=== PATIENT | female | born 1955 | race Caucasian/White ===

== ENCOUNTER 2017-12-16 01:34 | Emergency (ER) | payer SELFPAY ==
[2017-12-16 01:48] VITALS: BP 182/72; PULSE 74; O2SAT 100
[2017-12-16] MEDS ORDERED: TORAdol 30 mg Injection ONE (01:56)
[2017-12-16] MEDS: TORAdol 30 mg Injection IM ONE (01:58)
--- NOTE | 2017-12-16 01:59 | ERPHSYRPT ---
- History of Present Illness Time Seen by Provider: 12/16/17 01:54 Source: patient Exam Limitations: no limitations Patient Subjective Stated Complaint: pt was walking dog and wrapped leash around her legs causing her to fall, tried to catch fall with right hand, wrist and hand now hurts Triage Nursing Assessment: Pt c/o of right lower arm/wrist/hand pain due to a fall while walking a dog, wrist is swollen, no bruising, no redness, pulses normal, BP 182/72 Physician History: The patient is a left-handed 62-year-old female who complains of falling while walking her dog this evening, causing pain to her right wrist. She has not taken any analgesics placed ice on it. It is beginning to hurt more tonight now and she would like to know if it's broken. Her past medical history is unremarkable Occurred: this evening Reason for Fall: tripped, fell from standing pos Injuries/Pain Location: upper extremity (right wrist) Loss of Consciousness: no loss of consciousness Quality: aching Severity of Pain-Max: moderate Severity of Pain-Current: moderate Modifying Factors: Improves With: nothing Associated Symptoms (Fall): denies symptoms Allergies/Adverse Reactions: cephalexin Allergy (Verified 12/16/17 01:48) Home Medications: No Reportable Medications [No Reported Medications] 12/16/17 [History] - Review of Systems Constitutional: No Fever, No Chills Eyes: No Symptoms Ears, Nose, & Throat: No Symptoms Respiratory: No Cough, No Dyspnea Cardiac: No Chest Pain, No Edema, No Syncope Abdominal/Gastrointestinal: No Abdominal Pain, No Nausea, No Vomiting, No Diarrhea Genitourinary Symptoms: No Dysuria Musculoskeletal: Fall, Injury, Joint Pain Skin: No Rash Neurological: No Dizziness, No Focal Weakness, No Sensory Changes Psychological: No Symptoms Endocrine: No Symptoms Hematologic/Lymphatic: No Symptoms Immunological/Allergic: No Symptoms All Other Systems: Reviewed and Negative - Past Medical History Pertinent Past Medical History: No - Past Surgical History Past Surgical History: Yes Musculoskeletal: Orthopedic Surgery Female Surgical History: Hysterectomy, Section - Social History Smoking Status: Current every day smoker How long have you smoked: 20 yrs Drug Use: none Patient Lives Alone: Yes - Female History Hx Now: No - Nursing Vital Signs Nursing Vital Signs: Initial Vital Signs Temperature 98.7 F 12/16/17 01:37 Pulse Rate 74 12/16/17 01:37 Blood Pressure 182/72 12/16/17 01:37 O2 Sat by Pulse Oximetry 100 12/16/17 01:37 Pain Scale Pain Intensity 5 - [place] Coma Score Best Eye Response (Becka): (4) open spontaneously Best Verbal Response (Becka): (5) oriented Best Motor Response (Becka): (6) obeys commands [place] Total: 15 - Physical Exam General Appearance: no apparent distress, alert Head Injury: no evidence of injury Eye Exam: PERRL/EOMI ENT Exam: airway nml Neck Exam: normal inspection, No tenderness Respiratory/Chest Exam: normal breath sounds, No chest tenderness, No respiratory distress Cardiovascular Exam: normal heart sounds, regular rate/rhythm Gastrointestinal Exam: soft, No tenderness, No distention, No guarding, No ecchymosis Rectal Exam: not done Back Exam: normal inspection, No vertebral tenderness Extremity Exam: limited range of motion (right wrist), pain with movement, tenderness Neurologic Exam: alert, oriented x 3, cooperative, sensation nml, No motor deficits Skin Exam: normal color, warm, dry SpO2: 100 Oxygen Delivery: Room Air - Radiology Exams Right Wrist X-ray Interpretation: Interpreted by me, Negative, No Fracture Ordered Tests: Active Orders 24 hr Category Date Time Status Cold Application STAT Care 12/16/17 01:54 Active WRIST (MIN 3 VIEWS) Stat Exams 12/16/17 01:55 Taken Medication Summary Discontinued Medications Generic Name Dose Route Start Last Admin Trade Name Ashlyn PRN Reason Stop Dose Admin Ketorolac Tromethamine 60 mg 12/16/17 01:54 12/16/17 01:58 Toradol 30 Mg Injection IM 12/16/17 01:55 60 mg STAT ONE Administration Ketorolac Tromethamine Confirm 12/16/17 01:56 Toradol 30 Mg Injection Administered 12/16/17 01:57 Dose 60 mg .ROUTE .STK-MED ONE - Progress Progress: improved Counseled pt/family regarding: diagnosis, need for follow-up, rad results - Departure Time of Disposition: 02:27 Departure Disposition: Home Clinical Impression: Right wrist sprain Condition: Stable Critical Care Time: No Referrals: DOCTOR,NO FAMILY [Primary Care Provider] - Additional Instructions: You have a sprain of your right wrist. You do not have any broken bones. Wear the splint on your wrist as needed for comfort. You were given Toradol 60 mg by IM in the ER. Continue to take ibuprofen 800 mg every 8 hours as needed. Apply ice to the wrist for 10-15 minutes 2-3 times a day. Follow-up with your primary medical doctor as needed.
--- NOTE | 2017-12-16 08:44 | XRAY ---
Indication: Pain following fall. Comparison: None 3 views of the right wrist demonstrate mild degenerative changes of the scaphoid multangular 1st metacarpal articulation and moderate degenerative changes of the 1st MCP. No other bony, articular, or soft tissue abnormalities.
== END 2017-12-16 02:50 | disposition home or self-care (01) ==
LOC: ED 01:34
DX: S63.501A Unspecified sprain of right wrist, initial encounter (principal); W01.0XXA Fall on same level from slipping, tripping and stumbling without subsequent striking against object, initial encounter; Y93.K1 Activity, walking an animal
CPT/HCPCS: 73110; 96372; 99284; J1885; L3908

== ENCOUNTER 2020-12-11 09:18 | Emergency (ER) | payer MEDICARE ==
[2020-12-11 09:41] VITALS: PULSE 74; O2SAT 96
--- NOTE | 2020-12-11 10:52 | ERPHSYRPT ---
- History of Present Illness Time Seen by Provider: 12/11/20 09:21 Source: patient Exam Limitations: no limitations Patient Subjective Stated Complaint: MUNOZ, BODY ACHES, CHILLS Triage Nursing Assessment: PATIENT ALERT AND ORIENTED. LUNGS CLEAR DIMINISHED. COUGH NOTED. PATIENT HAS NASAL CONGESTION, NO DISTRESS NOTED. PATIENT SKIN CDI, BOWEL SOUNDS PRESENT, PULSES AND HEART RATE WNL. Physician History: 65 years old female with Covid vaccination who had a positive sick contact with COVID-19 3 days ago presented in the ER with sinus congestion, sore throat, mild headache and subjective feeling of chills with minimal nonproductive cough without any shortness of breath. 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 Does not want any symptomatic medicine for headache relief. Headache is minimal, frontal without any visual symptoms, numbness tingling weakness. Timing/Duration: gradual onset, days (3) Severity: mild, moderate ENT Location: mouth, throat Prearrival Treatment: over the counter meds Associated Symptoms: cough, chills, facial pain/swelling, headache, nasal congestion/drainage, sinus infection Allergies/Adverse Reactions: cephalexin Allergy (Intermediate, Verified 12/11/20 09:51) Hives Home Medications: No Reportable Medications [No Reported Medications] 12/16/17 [History] Hx Tetanus, Diphtheria Vaccination/Date Given: Yes Hx Influenza Vaccination/Date Given: No Hx Pneumococcal Vaccination/Date Given: No Travel Risk - International Travel Have you traveled outside of the country in past 3 weeks: No - Coronavirus Screening Are you exhibiting any of the following symptoms?: Yes Symptoms: Fever, Headaches/Body Aches/Fatigue Close contact with a COVID-19 positive Pt in past 14-21 Days: Yes - Vaccine Status Have you recieved a Covid-19 vaccination: Yes Narcotics Investigator: Moderna - Vaccination Dates Date of 2cond Vaccination (if applicable): 09/08/20 - Review of Systems Constitutional: Chills, Fatigue Eyes: No Symptoms Ears, Nose, & Throat: Nose Congestion, Sinus Drainage, Throat Pain, Throat Swelling Respiratory: Cough Cardiac: No Symptoms Abdominal/Gastrointestinal: No Symptoms Genitourinary Symptoms: No Symptoms Musculoskeletal: Myalgias Skin: No Symptoms Neurological: No Symptoms Psychological: No Symptoms Endocrine: No Symptoms Hematologic/Lymphatic: No Symptoms Immunological/Allergic: No Symptoms - Past Medical History Pertinent Past Medical History: No - Past Surgical History Past Surgical History: Yes Musculoskeletal: Orthopedic Surgery Female Surgical History: Hysterectomy, Section Other Surgical History: RIGHT LEG PROCEDURE - Social History Smoking Status: Current every day smoker How long have you smoked: 20 yrs Drug Use: none Patient Lives Alone: Yes - Female History Hx Now: No - Nursing Vital Signs Nursing Vital Signs: Initial Vital Signs Temperature 99 F 12/11/20 09:19 Pulse Rate 74 12/11/20 09:19 Respiratory Rate 20 12/11/20 09:19 Blood Pressure 159/91 12/11/20 09:19 O2 Sat by Pulse Oximetry 96 12/11/20 09:19 Pain Scale Pain Intensity 4 - Physical Exam General Appearance: no apparent distress, alert Eye Exam: bilateral eye: normal inspection, PERRL, EOMI Ear Exam: bilateral ear: auricle normal, canal normal, TM normal Nasal Exam: normal inspection Throat Exam: moist mucus membranes, pharynx swelling Neck Exam: normal inspection, non-tender, full range of motion Cardiovascular/Respiratory Exam: normal breath sounds, regular rate/rhythm Abdominal Exam: non-tender Neurologic Exam: alert, oriented x 3, cooperative Skin Exam: normal color SpO2 Interpretation: normal SpO2: 96 O2 Delivery: Room Air Lab/Rad Data: Laboratory Results 12/11/20 Range/Units 10:52 SARS-CoV-2 (PCR) POSITIVE A (NEGATIVE) Group A Strep Antibody NOT DETECTED (NEGATIVE) - Progress Progress: unchanged Progress Note: 12/11/20 12:01 65 years old vaccinated against COVID-19 presented with 3 days of sinus congestion with minimal cough but some headache/flulike symptoms. She has no difficulty breathing, lung sounds pretty much clear to auscultation. Not in any distress, nontoxic appearance. She has a positive Covid. Do not think she needs imaging or any other work-up. We will continue with supportive care/symptomatic treatment. She is recommended contact/droplet precautions, quarantine at home and outpatient follow-up. Discussed signs symptoms of worsening needing return to ER which she seems understanding. Counseled pt/family regarding: lab results, diagnosis, need for follow-up - Departure Departure Disposition: Home Clinical Impression: Viral syndrome, COVID-19 virus detected Condition: Stable Critical Care Time: No Referrals: DOCTOR,NO FAMILY [Primary Care Provider] - ROSALIE VANCE [ACTIVE STAFF] - Follow Up with PCP/3 days Instructions: Viral Syndrome (DC), Coronavirus Disease 2019 (COVID-19) (DC) Additional Instructions: Follow contact/droplet precautions. Take Tylenol as needed for aches and pains. Drink plenty of fluids to keep yourself well-hydrated. Follow-up with primary care for reevaluation. Return to ER for worsening symptoms of headache, chills or if develop fever persistently, worsening cough or shortness of breath etc.
[2020-12-11 11:24] LABS: Group A Strep NOT DETECTED (NEGATIVE)
[2020-12-11 11:42] LABS: SARS-CoV-2 Xpert Express POSITIVE (NEGATIVE)
[2020-12-11 12:57] VITALS: BP 145/85
== END 2020-12-11 13:00 | disposition home or self-care (01) ==
LOC: ED 09:18
DX: U07.1 COVID-19 (principal)
CPT/HCPCS: 87651; 99283; U0003

== ENCOUNTER 2023-09-10 04:17 | Emergency (ER) | payer MEDICARE ==
--- NOTE | 2023-09-10 04:51 | ERPHSYRPT ---
- History of Present Illness Time Seen by Provider: 09/10/23 04:40 Historian: patient Exam Limitations: no limitations Physician History: This is an overweight 68-year-old white female patient of Dr. Costa who presents to the emergency room department secondary to right upper quadrant abdominal pain that radiates around to her right back region. Patient still has her gallbladder in place. Patient has had a hysterectomy and section in the past. She continues to smoke tobacco cigarettes daily. Yesterday, 09/09/2023, patient ate the same type of foods twice. That is fried chicken, mashed potatoes, gravy and green beans. At approximately 9 PM she began having the above stated sharp pain pattern. At 2 AM this morning, she began having several bouts of vomiting. Patient has a significant family history of cholelithiasis and cholecystectomy. She denies chest pain. She denies shortness of breath. Timing/Duration: yesterday Abdominal Pain Onset Location: RUQ Pain Radiation: back (Side) Severity of Pain-Max: moderate Severity of Pain-Current: moderate Modifying Factors: Improves With: vomiting Associated Symptoms: loss of appetite, nausea, vomiting, No chest pain, No diarrhea, No shortness of breath Previous symptoms: no prior history, no recent treatment Allergies/Adverse Reactions: cephalexin Allergy (Intermediate, Verified 09/10/23 04:24) Hives Home Medications: Semaglutide [Ozempic] 0.25 mg SQ WEEKLY 09/10/23 [History] Hx Tetanus, Diphtheria Vaccination/Date Given: Yes Hx Influenza Vaccination/Date Given: No Hx Pneumococcal Vaccination/Date Given: No Travel Risk - International Travel Have you traveled outside of the country in past 3 weeks: No - Emerging Infectious Disease Are you exhibiting symptoms associated with any current EIDs: No - Review of Systems Constitutional: No Symptoms Eyes: No Symptoms Ears, Nose, & Throat: No Symptoms Respiratory: No Symptoms Cardiac: No Symptoms Abdominal/Gastrointestinal: Abdominal Pain, Nausea, Vomiting, Appetite Changes Genitourinary Symptoms: No Symptoms Musculoskeletal: No Symptoms Skin: No Symptoms Neurological: No Symptoms Psychological: No Symptoms Endocrine: No Symptoms Hematologic/Lymphatic: No Symptoms Immunological/Allergic: No Symptoms All Other Systems: Reviewed and Negative - Past Medical History Pertinent Past Medical History: No - Past Surgical History Past Surgical History: Yes Musculoskeletal: Orthopedic Surgery Female Surgical History: Hysterectomy, Section Other Surgical History: RIGHT LEG PROCEDURE - Social History Smoking Status: Current every day smoker How long have you smoked: 20 yrs Drug Use: none Patient Lives Alone: Yes - Nursing Vital Signs Nursing Vital Signs: Initial Vital Signs Temperature 97.1 F 09/10/23 04:30 Pulse Rate 91 H 09/10/23 04:30 Respiratory Rate 22 09/10/23 04:30 Blood Pressure 183/82 09/10/23 04:30 O2 Sat by Pulse Oximetry 98 09/10/23 04:30 Pain Scale Pain Intensity 8 - Physical Exam General Appearance: no apparent distress, alert, anxiety, obese Eye Exam: PERRL/EOMI, eyes nml inspection Ears, Nose, Throat Exam: normal ENT inspection, moist mucous membranes Neck Exam: normal inspection, non-tender, supple, full range of motion Respiratory Exam: normal breath sounds, lungs clear, airway intact, No chest tenderness, No respiratory distress Cardiovascular Exam: regular rate/rhythm, normal heart sounds, normal peripheral pulses Gastrointestinal/Abdomen Exam: soft, normal bowel sounds, tenderness (Right upper quadrant), guarding (Right upper quadrant to palpation) Pelvic Exam: not done Rectal Exam: not done Back Exam: normal inspection, normal range of motion, No CVA tenderness, No vertebral tenderness Extremity Exam: normal inspection, normal range of motion, pelvis stable Neurologic Exam: alert, oriented x 3, cooperative, rn home health II-XII nml as tested, normal mood/affect, nml cerebellar function, nml station & gait, sensation nml Skin Exam: normal color, warm, dry Lymphatic Exam: No adenopathy SpO2 Interpretation: normal O2 Delivery: Room Air - Course Nursing assessment & vital signs reviewed: Yes EKG Interpreted by Me: RATE (65), Sinus Rhythm, NORMAL AXIS, LAFB, NORMAL INTERVALS, Right Bundle Branch Block (Complete), Other (No acute ischemia on today's twelve-lead EKG.) Ordered Tests: Active Orders 24 hr Category Date Time Status EKG-ER Only STAT Care 09/10/23 04:50 Active IV Insertion STAT Care 09/10/23 04:50 Active ABDOMEN AND PELVIS W/0 CONTRAS [CT] Stat Exams 09/10/23 04:51 Completed AMYLASE Stat Lab 09/10/23 05:20 Completed CBC W DIFF Stat Lab 09/10/23 05:20 Completed CMP Stat Lab 09/10/23 05:20 Completed CULTURE,URINE Stat Lab 09/10/23 04:54 Received LIPASE Stat Lab 09/10/23 05:20 Completed TROPONIN Q4H Lab 09/10/23 05:20 Completed TROPONIN Q4H Lab 09/10/23 09:00 Ordered TROPONIN Q4H Lab 09/10/23 13:00 Ordered UA W/RFX UR CULTURE Stat Lab 09/10/23 04:54 Completed Medication Summary Generic Name Dose Route Start Last Admin Trade Name Freq PRN Reason Stop Dose Admin Levofloxacin/Dextrose 500 mg in 100 mls @ 100 mls/hr 09/10/23 06:01 09/10/23 06:09 Levofloxacin 500mg/100ml D5w IV 09/10/23 07:00 100 mls/hr STAT STA 100 mls/hr Administration Discontinued Medications Generic Name Dose Route Start Last Admin Trade Name Freq PRN Reason Stop Dose Admin Hydromorphone HCl 0.5 mg 09/10/23 04:50 09/10/23 05:29 Hydromorphone 1 Mg/1ml Inj IV 09/10/23 04:51 0.5 mg STAT ONE Administration Hydromorphone HCl Confirm 09/10/23 05:26 Hydromorphone 1 Mg/1ml Inj Administered 09/10/23 05:27 Dose 1 mg .ROUTE .STK-MED ONE Sodium Chloride 1,000 mls @ 999 mls/hr 09/10/23 04:50 09/10/23 05:28 Sodium Chloride 0.9% 1000 Ml IV 09/10/23 05:50 999 mls/hr .Q1H1M STA Administration Sodium Chloride Confirm 09/10/23 05:26 Sodium Chloride 0.9% 1000 Ml Administered 09/10/23 05:27 Dose 1,000 mls @ ud .ROUTE .STK-MED ONE Levofloxacin/Dextrose Confirm 09/10/23 06:06 Levofloxacin 500mg/100ml D5w Administered 09/10/23 06:07 Dose 500 mg in 100 mls @ ud IV .STK-MED ONE Ondansetron HCl 4 mg 09/10/23 04:50 09/10/23 05:28 Ondansetron Hcl 4 Mg/2 Ml Vial IV 09/10/23 04:51 4 mg STAT ONE Administration Ondansetron HCl Confirm 09/10/23 05:26 Ondansetron Hcl 4 Mg/2 Ml Vial Administered 09/10/23 05:27 Dose 4 mg .ROUTE .STK-MED ONE Pantoprazole Sodium 40 mg 09/10/23 04:50 09/10/23 05:28 Pantoprazole 40 Mg Vial IV 09/10/23 04:51 40 mg STAT ONE Administration Pantoprazole Sodium Confirm 09/10/23 05:26 Pantoprazole 40 Mg Vial Administered 09/10/23 05:27 Dose 40 mg IV .STK-MED ONE Potassium Chloride 20 meq 09/10/23 06:33 Potassium Chloride Tab 10 Meq Tab PO 09/10/23 06:34 STAT ONE Lab/Rad Data: Laboratory Result Diagrams 09/10/23 05:20 09/10/23 05:20 Laboratory Results 09/10/23 09/10/23 09/10/23 Range/Units 05:20 05:20 05:20 WBC 8.7 (4.0-10.5) x10^3/uL RBC 4.61 (4.1-5.4) x10^6/uL Hgb 13.4 (12.0-16.0) g/dL Hct 40.6 (35-47) % MCV 88.1 (78-100) fL MCH 29.1 (26-32) pg MCHC 33.0 (32-36) g/dL RDW 13.4 (11.5-14.0) % Plt Count 228 (150-450) x10^3/uL MPV 10.1 (7.5-11.0) fL Gran % 68.1 H (36.0-66.0) % Immature Gran % (Auto) 0.3 (0.00-0.4) % Nucleat RBC Rel Count 0.0 (0.00-0.1) % Eos # (Auto) 0.21 (0-0.5) x10^3/uL Immature Gran # (Auto) 0.03 (0.00-0.03) x10^3u/L Absolute Lymphs (auto) 1.88 (1.0-4.6) x10^3/uL Absolute Monos (auto) 0.59 (0.0-1.3) x10^3/uL Absolute Nucleated RBC 0.00 (0.00-0.01) x10^3u/L Lymphocytes % 21.7 L (24.0-44.0) % Monocytes % 6.8 (0.0-12.0) % Eosinophils % 2.4 (0.00-5.0) % Basophils % 0.7 (0.0-0.4) % Absolute Granulocytes 5.89 (1.4-6.9) x10^3/uL Basophils # 0.06 (0-0.4) x10^3/uL Sodium 142 (135-145) mmol/L Potassium 3.2 L (3.5-5.1) mmol/L Chloride 106 (98-107) mmol/L Carbon Dioxide 29 (22-30) mmol/L Anion Gap 9.6 (5-15) MEQ/L BUN 16 (7-17) mg/dL Creatinine 0.77 (0.52-1.04) mg/dL Estimated GFR 83.5 ML/MIN Glucose 115 H (74-106) mg/dL Calcium 9.1 (8.4-10.2) mg/dL Total Bilirubin 0.50 (0.2-1.3) mg/dL AST 19 (14-36) U/L ALT 17 (0-35) U/L Alkaline Phosphatase 77 (38-126) U/L Troponin I < 0.012 (0.000-0.033) ng/mL Serum Total Protein 7.0 (6.3-8.2) g/dL Albumin 3.9 (3.5-5.0) g/dL Amylase 42 (30-110) U/L Lipase 76 (23-300) U/L Urine Color (Yellow) Urine Appearance (Clear) Urine pH (4.6-8.0) Ur Specific [place] (1.005-1.030) Urine Protein (Negative) Urine Glucose (UA) (Negative) mg/dL Urine Ketones (Negative) Urine Blood (Negative) Urine Nitrite (Negative) Urine Bilirubin (Negative) Urine Urobilinogen (0.2) mg/dL Ur Leukocyte Esterase (Negative) U Hyaline Cast (Auto) (0-2) /LPF Urine Microscopic RBC (0-5) /HPF Urine Microscopic WBC (0-5) /HPF Ur Epithelial Cells (None Seen) /HPF Urine Bacteria (None Seen) /HPF Urine Culture Reflexed (NO) 09/10/23 Range/Units 04:54 WBC (4.0-10.5) x10^3/uL RBC (4.1-5.4) x10^6/uL Hgb (12.0-16.0) g/dL Hct (35-47) % MCV (78-100) fL MCH (26-32) pg MCHC (32-36) g/dL RDW (11.5-14.0) % Plt Count (150-450) x10^3/uL MPV (7.5-11.0) fL Gran % (36.0-66.0) % Immature Gran % (Auto) (0.00-0.4) % Nucleat RBC Rel Count (0.00-0.1) % Eos # (Auto) (0-0.5) x10^3/uL Immature Gran # (Auto) (0.00-0.03) x10^3u/L Absolute Lymphs (auto) (1.0-4.6) x10^3/uL Absolute Monos (auto) (0.0-1.3) x10^3/uL Absolute Nucleated RBC (0.00-0.01) x10^3u/L Lymphocytes % (24.0-44.0) % Monocytes % (0.0-12.0) % Eosinophils % (0.00-5.0) % Basophils % (0.0-0.4) % Absolute Granulocytes (1.4-6.9) x10^3/uL Basophils # (0-0.4) x10^3/uL Sodium (135-145) mmol/L Potassium (3.5-5.1) mmol/L Chloride (98-107) mmol/L Carbon Dioxide (22-30) mmol/L Anion Gap (5-15) MEQ/L BUN (7-17) mg/dL Creatinine (0.52-1.04) mg/dL Estimated GFR ML/MIN Glucose (74-106) mg/dL Calcium (8.4-10.2) mg/dL Total Bilirubin (0.2-1.3) mg/dL AST (14-36) U/L ALT (0-35) U/L Alkaline Phosphatase (38-126) U/L Troponin I (0.000-0.033) ng/mL Serum Total Protein (6.3-8.2) g/dL Albumin (3.5-5.0) g/dL Amylase (30-110) U/L Lipase (23-300) U/L Urine Color Yellow (Yellow) Urine Appearance Cloudy A (Clear) Urine pH 5.0 (4.6-8.0) Ur Specific [place] 1.015 (1.005-1.030) Urine Protein Negative (Negative) Urine Glucose (UA) Negative (Negative) mg/dL Urine Ketones Negative (Negative) Urine Blood Negative (Negative) Urine Nitrite Negative (Negative) Urine Bilirubin Negative (Negative) Urine Urobilinogen 0.2 (0.2) mg/dL Ur Leukocyte Esterase Moderate A (Negative) U Hyaline Cast (Auto) 3-5 A (0-2) /LPF Urine Microscopic RBC 0-2 (0-5) /HPF Urine Microscopic WBC 21-50 A (0-5) /HPF Ur Epithelial Cells Moderate A (None Seen) /HPF Urine Bacteria Moderate A (None Seen) /HPF Urine Culture Reflexed YES (NO) - Progress Progress: improved, pain not gone completely, re-examined Progress Note: 09/10/23 05:58 My medical decision making and the assignment of moderate complexity to this patient's medical issue is based on review of the patient's past medical history, review the patient's medication list, review the patient drug allergy list, history present illness and physical findings on examination. The workup includes placement of intravenous line, infusion of normal saline solution, infusion of Zofran intravenously, infusion of Dilaudid intravenously, infusion of Protonix intravenously, CBC, CMP, amylase, lipase, urinalysis, CT scan of the abdomen pelvis without contrast. Differential diagnosis includes symptomatic cholelithiasis, cholecystitis, pancreatitis, appendicitis, 09/10/23 06:35 I interpreted the patient's laboratory data results. This patient has a urinary tract infection. Based on the review of the patient's laboratory data results, there is no evidence of any acute or emergent medical issue. CT scan of the abdomen pelvis without contrast was interpreted by the radiologist and I reviewed the impression. Pression states distended gallbladder with cholelithiasis and sludge present. Mild prominent common bile duct with no identifiable calculus. Counseled pt/family regarding: lab results, diagnosis, need for follow-up, rad results Medical Desision Making - Independent Historian Additional History obtained from: Family - Diagnostic Testing Diagnostic test were ordered, analyzed, and reviewed by me: Yes Radiological Interpretation: Reviewed by me, Teleradiologist Report - Risk of complications The pt has a mod risk of morbidity or mortality based on: Need for prescription drug management - Departure Departure Disposition: Home Clinical Impression: UTI (urinary tract infection), Symptomatic cholelithiasis, Hypokalemia Condition: Stable Critical Care Time: No Referrals: SHADI COSTA DO [Primary Care Provider] - Follow up/PCP as directed Additional Instructions: Drink plenty of fluids. Avoid fatty greasy spicy foods. Take your medication as prescribed. Call your primary care provider later today, 09/10/2023, to make arrangements for a follow-up appointment to be seen in the next 3 days. Discussed with the primary care provider about outpatient gallbladder ultrasound and referral to general surgeon if indicated Prescriptions: Hydrocodone/APAP 5/325 [[place] 5/325 mg] 1 each PO Q8H PRN PRN #6 tablet MDD 3 PRN Reason: Pain Promethazine HCl 25 mg [Phenergan 25 mg] 25 mg PO Q8H PRN PRN #10 tablet PRN Reason: Nausea/Vomiting Ciprofloxacin [Cipro 500 MG] 500 mg PO BID #14 tablet
[2023-09-10 04:53] VITALS: TEMP 97.1
[2023-09-10 05:02] LABS: Appearance Cloudy (Clear); Bacteria Moderate /HPF (None Seen); Bilirubin Negative (Negative); Blood Negative (Negative); Epithelial Cells Moderate /HPF (None Seen); Glucose, Urine Negative (Negative); Ketones Negative (Negative); Leukocyte Esterase Moderate (Negative); Nitrite Negative (Negative); Protein,Urine Dip Negative (Negative); RBC 0-2 /HPF (0-5); Specific Gravity 1.015 (1.005-1.030); Urobilinogen 0.2 mg/dL (0.2); WBC 21-50 /HPF (0-5)
[2023-09-10 05:08] LABS: ADD URINE CULTURE? YES (NO)
[2023-09-10 05:25] LABS: Absolute Neutrophil Ct (ANC) 5.89 x10^3/uL (1.4-6.9); BASOPHIL % 0.7 % (0.0-0.4); Basophil (Absolute #) 0.06 x10^3/uL (0-0.4); Eosinophil % 2.4 % (0.00-5.0); Eosinophil (Absolute #) 0.21 x10^3/uL (0-0.5); Hematocrit 40.6 % (35-47); Hemoglobin 13.4 g/dL (12.0-16.0); IMMATURE GRAN # 0.03 x10^3u/L (0.00-0.03); IMMATURE GRAN % 0.3 % (0.00-0.4); Lymphocyte (Absolute #) 1.88 x10^3/uL (1.0-4.6); Lymphocytes % 21.7 % (24.0-44.0); Mean Cell Volume 88.1 fL (78-100); Mean Corpuscular Hemoglobin 29.1 pg (26-32); Mean Platelet Volume 10.1 fL (7.5-11.0); Monocyte (Absolute #) 0.59 x10^3/uL (0.0-1.3); Monocytes % 6.8 % (0.0-12.0); Neutrophil % 68.1 % (36.0-66.0); Platelet Count 228 x10^3/uL (150-450); Red Blood Count 4.61 x10^6/uL (4.1-5.4); Red Cell Distribution Width 13.4 % (11.5-14.0); White Blood Count 8.7 x10^3/uL (4.0-10.5)
[2023-09-10] MEDS ORDERED: Hydromorphone 1 mg/ml Injection ONE (05:26)
[2023-09-10] MEDS ORDERED: PROTONIX 40 MG IV IV ONE (05:26)
[2023-09-10] MEDS ORDERED: Sodium Chloride 0.9% 1000 ML 1,000 ML ONE (05:26)
[2023-09-10] MEDS ORDERED: Zofran 4 MG/2 ML VIAL ONE (05:26)
[2023-09-10] MEDS: PROTONIX 40 MG IV IV ONE (05:28)
[2023-09-10] MEDS: Sodium Chloride 0.9% 1000 ML 1,000 ML IV STA (05:28)
[2023-09-10] MEDS: Zofran 4 MG/2 ML VIAL IV ONE (05:28)
[2023-09-10] MEDS: Hydromorphone 1 mg/ml Injection IV ONE (05:29)
[2023-09-10 05:40] LABS: ALBUMIN 3.9 g/dL (3.5-5.0); ANION GAP 9.6 MEQ/L (5-15); BILIRUBIN,TOTAL 0.5 mg/dL (0.2-1.3); Calcium 9.1 mg/dL (8.4-10.2); Creatinine 1 0.77 mg/dL (0.52-1.04); EST GLOMERULAR FILTRATION RATE 83.5 ML/MIN; Potassium 3.2 mmol/L (3.5-5.1)
[2023-09-10] MEDS ORDERED: Levofloxacin 500MG/100ML D5W 500 MG/100 ML BAG IV ONE (06:06)
[2023-09-10] MEDS: Levofloxacin 500MG/100ML D5W 500 MG/100 ML BAG IV STA (06:09)
--- NOTE | 2023-09-10 06:21 | XRAY ---
CLINICAL HISTORY: RUQ pain; vomiting COMPARISON: None TECHNIQUE: Contiguous axial images were obtained from the level of the diaphragm to the pubic symphysis without intravenous or oral contrast. Coronal and sagittal reconstructions were likewise performed and indicated to increase the sensitivity for detecting clinically relevant pathology. CT scan was performed according to ALARA (as low as reasonable achievable). FINDINGS: Small solid nodule measuring 3 mm x 3mm noted in left lower lobe. The rest of visualized lung bases are clear. Evaluation of the abdominal and pelvic visceral organs is limited without intravenous contrast. Few calcified granulomas noted in liver and spleen. The rest of unenhanced liver, spleen, pancreas, and adrenal glands are grossly unremarkable. The gallbladder is distended. Heterogeneous hyperdense layered structure, suggestive of calculus measuring 42 mm x 30 mm x 30 mm noted in gall bladder lumen in neck region. Dependent amorphous sludge noted in lumen. Suspicious focal wall calcification in fundus of gall bladder. No pericholecystic fat stranding or fluid collection. Wall thickness measure upto 2.6 mm. Common bile duct is mild prominent, measuring 6-7 mm. No intraductal calculi. No intrahepatic biliary radicle dilatation. The kidneys are normal in size and attenuation without obvious calcification. There is no hydronephrosis or perinephric stranding. The ureters are normal in caliber. No adenopathy or fluid collections are seen. No evidence of focal or diffuse bowel wall thickening or evidence of bowel obstruction is seen. The appendix is not visualized. The aorta is normal in caliber with atherosclerotic wall calcifications. The urinary bladder is normal in contour. Uterus is not visualised. No lesions in bilateral adnexa. No aggressive appearing osseous lesions are identified. Vertebral body hemnagiomas noted in T10 and L3 vertebra. IMPRESSION: 1. Distended gall bladder with cholelithiasis and sludge. No imaging features of acute cholecystitis. 2. Mild prominent common bile duct with no identifiable calcified calculus. 3. Few calcified granuloma in liver and spleen. 4. Small solid nodule in left lower lobe - no routine follow up needed as per Fleischner Society guidelines. Electronically Signed by: Wali Phillips MD. (09/10/2023 06:17:08 EDT)
[2023-09-10] MEDS ORDERED: Klor Con ONE (06:39)
[2023-09-10] MEDS: Klor Con PO ONE (06:40)
[2023-09-10 06:42] VITALS: PULSE 73; RESP 22; O2SAT 96
[2023-09-10 07:15] VITALS: BP 146/69
== END 2023-09-10 07:15 | disposition home or self-care (01) ==
LOC: ED 04:17
DX: N39.0 Urinary tract infection, site not specified (principal); K80.20 Calculus of gallbladder without cholecystitis without obstruction; E87.6 Hypokalemia; R10.11 Right upper quadrant pain; R11.2 Nausea with vomiting, unspecified; Z79.891 Long term (current) use of opiate analgesic; Z79.85 Long-term (current) use of injectable non-insulin antidiabetic drugs; Z72.0 Tobacco use
CPT/HCPCS: 36000; 36415; 74176; 80053; 81001; 82150; 83690; 84484; 85025; 87086; 93005; 96360; 96374; 96375; 99284; J1170; J1956; J2405; A9270-GY

== ENCOUNTER 2023-11-14 08:28 | Day surgery (SDC) | payer MEDICARE ==
[2023-11-14 08:41] VITALS: RESP 18
[2023-11-14] MEDS ORDERED: CLINDAMYCIN-D5W 900 MG/50 ML*** 900 MG/50 ML BAG IV ONE (09:07)
[2023-11-14] MEDS ORDERED: Lactated Ringers 1,000 ML IV ONE (09:08)
[2023-11-14] MEDS ORDERED: Levofloxacin 500MG/100ML D5W 500 MG/100 ML BAG IV ONE (09:08)
[2023-11-14 09:16] LABS: Appearance Cloudy (Clear); Bacteria Many /HPF (None Seen); Bilirubin Negative (Negative); Blood Negative (Negative); Epithelial Cells Rare /HPF (None Seen); Glucose, Urine Negative (Negative); Hyaline Casts NONE SEEN /LPF (0-2); Ketones Negative (Negative); Leukocyte Esterase Large (Negative); Nitrite Positive (Negative); Protein,Urine Dip Negative (Negative); RBC 0-2 /HPF (0-5); Specific Gravity 1.015 (1.005-1.030); WBC >100 /HPF (0-5)
[2023-11-14] MEDS: Levofloxacin 500MG/100ML D5W 500 MG/100 ML BAG IV ONE (09:16)
[2023-11-14] MEDS: Lactated Ringers 1,000 ML IV SCH (09:16)
[2023-11-14] MEDS: CLINDAMYCIN-D5W 900 MG/50 ML*** 900 MG/50 ML BAG IV SCH (09:16)
[2023-11-14 09:22] LABS: ADD URINE CULTURE? YES (NO)
[2023-11-14] MEDS ORDERED: Sensorcaine 0.25% 10 ML ONE ×2 (11:34→11:45)
[2023-11-14] MEDS ORDERED: SUBLIMAZE 100 MCG/2 ML ONE ×2 (11:53→13:38)
[2023-11-14] MEDS ORDERED: Xylocaine-Mpf 2% 5 Ml Vial ONE (11:54)
[2023-11-14] MEDS ORDERED: Zofran 4 MG/2 ML VIAL ONE ×2 (11:54→13:31)
[2023-11-14] MEDS ORDERED: ROCURONIUM BROMIDE IV ONE (11:54)
[2023-11-14] MEDS ORDERED: TORAdol 30 mg Injection ONE (11:54)
[2023-11-14] MEDS ORDERED: BRIDION 200MG/2ML IV ONE (11:54)
[2023-11-14] MEDS ORDERED: Decadron 4 MG INJ ONE (11:54)
[2023-11-14] MEDS ORDERED: DIPRIVAN 200 MG/20 ML IV ONE (11:54)
[2023-11-14] MEDS ORDERED: Ephedrine Sulfate 50 MG/ML ONE (12:20)
[2023-11-14 14:15] VITALS: TEMP 97.8; O2SAT 96
[2023-11-14 14:37] VITALS: BP 146/71; PULSE 52
--- NOTE | 2023-11-15 12:37 | OP ---
SURGERY DATE: 11/14/2023 1150 - 1305 PREOPERATIVE DIAGNOSES: Chronic cholecystitis, cholelithiasis. POSTOPERATIVE DIAGNOSES: Chronic cholecystitis, cholelithiasis. PROCEDURE: Laparoscopic cholecystectomy. SURGEON: Preet Ojeda MD ANESTHESIA: General. ESTIMATED BLOOD LOSS: Minimal. PATIENT CONDITION: Stable. COMPLICATIONS: None. SPECIMENS: Gallbladder. HISTORY OF PRESENT ILLNESS: The patient presents with symptoms consistent with chronic cholecystis. She had stones on imaging. I discussed with patient risk of infection, bleeding, injury to nearby structure, hernia, failure to resolve symptoms. She elected to proceed with surgery. FINDINGS: Gallbladder totally full of stones. Critical view obtained. DESCRIPTION OF PROCEDURE AND FINDINGS: The patient was brought to the operating room. General anesthesia induced. Routinely positioned, prepped, and draped. Time-out performed. Received preoperative antibiotics. The 5 mm Optiview trocar placed in the left upper quadrant. Pneumoperitoneum established. A right paramedian 11 mm trocar placed. Two additional 5 mm trocars placed in right upper quadrant. Patient was positioned. Gallbladder was retracted. It was just totally full of stones, but the cystic duct, cystic artery dissected out. Critical view was clearly obtained. The duct and artery taken with 5 mm metal clip concrete vibrator operator, both divided. Gallbladder was taken off the liver bed and placed in a specimen bag, removed through the 11 trocar site which did require some skin extension. The right upper quadrant reinspected, irrigated, suctioned out. Clips in good position. Good hemostasis. The 11 trocar site closed with 0 Vicryl interrupted suture passer. Right upper quadrant port removed under direction visualization. Left upper quadrant port used for desufflation and removed. Marcaine had been injected at all port sites. Skin was closed with 4-0 Vicryl sutures. Steri-Strips and dressings applied. All counts were correct. The patient tolerated the procedure well, was extubated and taken to Recovery in stable condition. RECOMMENDATIONS: As the patient was complaining of UTI symptoms and does have leukocytes and nitrites positive on her UA, she was sent home with a Bactrim prescription also. See her back in 2 weeks in office.
== END 2023-11-14 14:38 | disposition home or self-care (01) ==
LOC: SDC 08:28
PROVIDERS: ATTEND Surgery
DX: K80.10 Calculus of gallbladder with chronic cholecystitis without obstruction (principal); Z79.899 Other long term (current) drug therapy
CPT/HCPCS: 81001; 87077; 87086; 87186; J1100; J1885; J1956; J2405; J2704; J3010

== ENCOUNTER 2024-03-05 09:12 | Emergency (ER) | payer MEDICARE ==
[2024-03-05 09:26] VITALS: TEMP 97.4
--- NOTE | 2024-03-05 09:58 | ERPHSYRPT ---
- History of Present Illness Time Seen by Provider: 03/05/24 09:52 Source: patient, family Exam Limitations: no limitations Patient Subjective Stated Complaint: pt c/o of diarrhea for 2 days and dizziness, sweating, heart pounding since yesterday Triage Nursing Assessment: Pt brought to the ER by her daughter, hypertensive, denies pain, diarrhea 7 times today, started spironolactone on 02/28/2024 for her blood pressure, pulses normal, skin n/w/d, no difficulty breathing, bowel sounds heard in all 4 quadrants, doesn't appear to be in any distress Physician History: This is an overweight 68-year-old white female patient of Dr. Costa who was brought to the emergency department by private vehicle escorted by her daughter to the emergency department to be evaluated secondary to 2-day history of dizziness, multiple episodes of diarrhea and her heart pounding. She denies chest pain. She denies shortness of breath. She denies abdominal pain. She has had no vomiting. She has not had no documented fevers. She was started on spironolactone to help control her hypertension 5 days ago. She has known history of a goiter. She is a daily smoker of tobacco cigarettes. Timing/Duration: day(s) (2) Severity: mild (To moderate) Modifying Factors: Improves With: medication, nothing Associated Symptoms: other (Dizziness, palpitations and diarrhea), No vomiting, No abdominal pain, No shortness of breath, No chest pain Allergies/Adverse Reactions: cephalexin Allergy (Intermediate, Verified 03/05/24 09:26) Hives Home Medications: Methimazole 10 mg PO DAILY 03/05/24 [History] Spironolactone 50 mg PO DAILY 03/05/24 [History] Hx Tetanus, Diphtheria Vaccination/Date Given: Yes Hx Influenza Vaccination/Date Given: No Hx Pneumococcal Vaccination/Date Given: No Travel Risk - International Travel Have you traveled outside of the country in past 3 weeks: No - Emerging Infectious Disease Are you exhibiting symptoms associated with any current EIDs: Yes Symptoms: Diarrhea Comment: burning and urinary frequency - Review of Systems Constitutional: No Symptoms Eyes: No Symptoms Ears, Nose, & Throat: No Symptoms Respiratory: No Symptoms Cardiac: Palpitations Abdominal/Gastrointestinal: Diarrhea, No Abdominal Pain, No Nausea, No Vomiting, No Constipation Genitourinary Symptoms: No Symptoms Musculoskeletal: No Symptoms Skin: No Symptoms Neurological: Dizziness Psychological: No Symptoms Endocrine: No Symptoms Hematologic/Lymphatic: No Symptoms Immunological/Allergic: No Symptoms All Other Systems: Reviewed and Negative - Past Medical History Pertinent Past Medical History: Yes Neurological History: No Pertinent History ENT History: No Pertinent History Cardiac History: No Pertinent History Respiratory History: No Pertinent History Endocrine Medical History: No Pertinent History Musculoskeletal History: Fractures GI Medical History: No Pertinent History History: No Pertinent History Psycho-Social History: No Pertinent History Female Reproductive Disorders: No Pertinent History - Past Surgical History Past Surgical History: Yes Neuro Surgical History: No Pertinent History Cardiac: No Pertinent History Respiratory: No Pertinent History Gastrointestinal: No Pertinent History Genitourinary: No Pertinent History Musculoskeletal: Orthopedic Surgery Female Surgical History: Hysterectomy, Section Other Surgical History: RIGHT LEG PROCEDURE - Social History Smoking Status: Current every day smoker How long have you smoked: 20 yrs Exposure to second hand smoke: Yes Drug Use: none Patient Lives Alone: Yes - Social Determinants of Health Will the patient participate in the screening: Yes Do you worry about a steady place to live?: No Do you have any problems with any of the following?: No known problems In the past 12 months,have you had to go without utilities?: No Transportation Issues: No Has anyone in your support network made you feel unsafe?: No Have you or anyone in your house had to go without enough: No - Nursing Vital Signs Nursing Vital Signs: Initial Vital Signs Temperature 97.4 F 03/05/24 09:16 Pulse Rate 67 03/05/24 09:16 Respiratory Rate 17 03/05/24 09:16 Blood Pressure 193/90 03/05/24 09:16 O2 Sat by Pulse Oximetry 100 03/05/24 09:16 Pain Scale Pain Intensity 0 - Physical Exam General Appearance: no apparent distress, alert, anxiety, obese Eye Exam: PERRL/EOMI, eyes nml inspection Ears, Nose, Throat Exam: normal ENT inspection, moist mucous membranes Neck Exam: normal inspection, non-tender, supple, full range of motion Respiratory Exam: normal breath sounds, lungs clear, airway intact, No chest tenderness, No respiratory distress Cardiovascular Exam: regular rate/rhythm, normal heart sounds, normal peripheral pulses Gastrointestinal/Abdomen Exam: soft, normal bowel sounds, No tenderness Pelvic Exam: not done Rectal Exam: not done Back Exam: normal inspection, normal range of motion, No CVA tenderness, No vertebral tenderness Extremity Exam: normal inspection, normal range of motion, pelvis stable Neurologic Exam: alert, oriented x 3, cooperative, printing technician II-XII nml as tested, nml cerebellar function, nml station & gait, sensation nml Skin Exam: normal color, warm, dry Lymphatic Exam: No adenopathy SpO2 Interpretation: normal SpO2: 97 O2 Delivery: Room Air - Course Nursing assessment & vital signs reviewed: Yes EKG Interpreted by Me: RATE (59), Sinus Rhythm, NORMAL AXIS, LAFB, NORMAL INTERVALS, NORMAL QRS, Other (No acute ischemic changes on today's twelve-lead EKG. QTc is 440) Ordered Tests: Active Orders 24 hr Category Date Time Status EKG-ER Only STAT Care 03/05/24 09:42 Active IV Insertion STAT Care 03/05/24 09:42 Active Pulse Oximetry (ED) STAT Care 03/05/24 09:42 Active CBC W DIFF Stat Lab 03/05/24 10:10 Completed CMP Stat Lab 03/05/24 10:10 Completed MAGNESIUM Stat Lab 03/05/24 10:10 Completed TROPONIN Q4H Lab 03/05/24 10:10 Completed TROPONIN Q4H Lab 03/05/24 13:45 Ordered TROPONIN Q4H Lab 03/05/24 17:45 Ordered TSH, 3RD Generation Stat Lab 03/05/24 10:10 Completed UA W/RFX UR CULTURE Stat Lab 03/05/24 10:00 Completed Medication Summary Discontinued Medications Generic Name Dose Route Start Last Admin Trade Name Freq PRN Reason Stop Dose Admin Sodium Chloride 500 mls @ 500 mls/hr 03/05/24 09:43 03/05/24 10:02 Sodium Chloride 0.9% 500 Ml IV 03/05/24 10:42 500 mls/hr .Q1H ONE Administration Sodium Chloride Confirm 03/05/24 10:01 Sodium Chloride 0.9% 500 Ml Administered 03/05/24 10:02 Dose 500 mls @ ud IV .STK-MED ONE Lab/Rad Data: Laboratory Result Diagrams 03/05/24 10:10 03/05/24 10:10 Laboratory Results 03/05/24 03/05/24 03/05/24 Range/Units 10:10 10:10 10:10 WBC (3.98-10.04) x10^3/uL RBC (3.93-5.22) x10^6/uL Hgb (11.2-15.7) g/dL Hct (34.1-44.9) % MCV (79.4-94.8) fL MCH (25.6-32.2) pg MCHC (32.2-35.5) g/dL RDW (11.7-14.4) % Plt Count (182-369) x10^3/uL MPV (9.4-12.3) fL Gran % (34.0-71.1) % Immature Gran % (Auto) (0.001-0.429) % Nucleat RBC Rel Count (0.00-0.2) % Eos # (Auto) (0.04-0.36) x10^3/uL Immature Gran # (Auto) (0.001-0.031) x10^3u/L Absolute Lymphs (auto) (1.18-3.74) x10^3/uL Absolute Monos (auto) (0.24-0.86) x10^3/uL Absolute Nucleated RBC (0.00-0.012) x10^3u/L Lymphocytes % (19.3-51.7) % Monocytes % (4.7-12.5) % Eosinophils % (0.7-5.8) % Basophils % (0.1-1.2) % Absolute Granulocytes (1.56-6.13) x10^3/uL Basophils # (0.01-0.08) x10^3/uL Sodium (135-145) mmol/L Potassium (3.5-5.1) mmol/L Chloride (98-107) mmol/L Carbon Dioxide (22-30) mmol/L Anion Gap (5-15) MEQ/L BUN (7-17) mg/dL Creatinine (0.52-1.04) mg/dL Estimated GFR ML/MIN Glucose (74-106) mg/dL Calcium (8.4-10.2) mg/dL Magnesium (1.6-2.3) mg/dL Total Bilirubin (0.2-1.3) mg/dL AST (14-36) U/L ALT (0-35) U/L Alkaline Phosphatase (38-126) U/L Troponin I < 0.012 (0.000-0.033) ng/mL Serum Total Protein (6.3-8.2) g/dL Albumin (3.5-5.0) g/dL Free T4 1.01 (0.78-2.19) ng/dL TSH 3rd Generation (0.470-4.680) mIU/L Urine Color (Yellow) Urine Appearance (Clear) Urine pH (4.6-8.0) Ur Specific [place] (1.005-1.030) Urine Protein (Negative) Urine Glucose (UA) (Negative) mg/dL Urine Ketones (Negative) Urine Blood (Negative) Urine Nitrite (Negative) Urine Bilirubin (Negative) Urine Urobilinogen (0.2) mg/dL Ur Leukocyte Esterase (Negative) U Hyaline Cast (Auto) (0-2) /LPF Urine Microscopic RBC (0-5) /HPF Urine Microscopic WBC (0-5) /HPF Ur Epithelial Cells (None Seen) /HPF Urine Bacteria (None Seen) /HPF Urine Culture Reflexed (NO) Influenza Type A Ag NEGATIVE (NEGATIVE) Influenza Type B Ag NEGATIVE (NEGATIVE) RSV (PCR) NEGATIVE (NEGATIVE) SARS-CoV-2 (PCR) NEGATIVE (NEGATIVE) 03/05/24 03/05/24 03/05/24 Range/Units 10:10 10:10 10:00 WBC 6.0 (3.98-10.04) x10^3/uL RBC 4.56 (3.93-5.22) x10^6/uL Hgb 13.1 (11.2-15.7) g/dL Hct 40.6 (34.1-44.9) % MCV 89.0 (79.4-94.8) fL MCH 28.7 (25.6-32.2) pg MCHC 32.3 (32.2-35.5) g/dL RDW 13.6 (11.7-14.4) % Plt Count 207 (182-369) x10^3/uL MPV 10.2 (9.4-12.3) fL Gran % 57.6 (34.0-71.1) % Immature Gran % (Auto) 0.3 (0.001-0.429) % Nucleat RBC Rel Count 0.0 (0.00-0.2) % Eos # (Auto) 0.18 (0.04-0.36) x10^3/uL Immature Gran # (Auto) 0.02 (0.001-0.031) x10^3u/L Absolute Lymphs (auto) 1.74 (1.18-3.74) x10^3/uL Absolute Monos (auto) 0.55 (0.24-0.86) x10^3/uL Absolute Nucleated RBC 0.00 (0.00-0.012) x10^3u/L Lymphocytes % 29.2 (19.3-51.7) % Monocytes % 9.2 (4.7-12.5) % Eosinophils % 3.0 (0.7-5.8) % Basophils % 0.7 (0.1-1.2) % Absolute Granulocytes 3.42 (1.56-6.13) x10^3/uL Basophils # 0.04 (0.01-0.08) x10^3/uL Sodium 143 (135-145) mmol/L Potassium 3.9 (3.5-5.1) mmol/L Chloride 110 H (98-107) mmol/L Carbon Dioxide 25 (22-30) mmol/L Anion Gap 12.5 (5-15) MEQ/L BUN 21 H (7-17) mg/dL Creatinine 0.77 (0.52-1.04) mg/dL Estimated GFR 83.5 ML/MIN Glucose 92 (74-106) mg/dL Calcium 9.5 (8.4-10.2) mg/dL Magnesium 2.2 (1.6-2.3) mg/dL Total Bilirubin 0.50 (0.2-1.3) mg/dL AST 24 (14-36) U/L ALT 22 (0-35) U/L Alkaline Phosphatase 73 (38-126) U/L Troponin I (0.000-0.033) ng/mL Serum Total Protein 6.8 (6.3-8.2) g/dL Albumin 4.1 (3.5-5.0) g/dL Free T4 (0.78-2.19) ng/dL TSH 3rd Generation 0.332 L (0.470-4.680) mIU/L Urine Color Yellow (Yellow) Urine Appearance Clear (Clear) Urine pH 5.5 (4.6-8.0) Ur Specific [place] <=1.005 (1.005-1.030) Urine Protein Negative (Negative) Urine Glucose (UA) Negative (Negative) mg/dL Urine Ketones Negative (Negative) Urine Blood Negative (Negative) Urine Nitrite Negative (Negative) Urine Bilirubin Negative (Negative) Urine Urobilinogen 0.2 (0.2) mg/dL Ur Leukocyte Esterase Negative (Negative) U Hyaline Cast (Auto) NONE SEEN (0-2) /LPF Urine Microscopic RBC 0-2 (0-5) /HPF Urine Microscopic WBC 0-2 (0-5) /HPF Ur Epithelial Cells None Seen (None Seen) /HPF Urine Bacteria None Seen (None Seen) /HPF Urine Culture Reflexed NO (NO) Influenza Type A Ag (NEGATIVE) Influenza Type B Ag (NEGATIVE) RSV (PCR) (NEGATIVE) SARS-CoV-2 (PCR) (NEGATIVE) - Progress Progress: improved Progress Note: 03/05/24 09:56 My medical decision making and the assignment of moderate complexity to this patient's medical issue today is based on review of the patient's past medical history, review of the patient's medication list, reviewed patient drug allergy list, history present illness and physical findings on examination. The workup in this patient includes placement of intravenous line, infusion of crystalloid solution, twelve-lead EKG, troponin level, urinalysis, CBC, CMP, magnesium, free T4, TSH and viral swabs. Differential diagnosis includes but is not limited to arrhythmia, electrolyte abnormalities, dehydration, thyroid abnormalities, myocardial infarction 03/05/24 11:19 I interpreted the patient's laboratory data results. Based on the laboratory data results, the patient has a normal free T4 and a low TSH. The patient is not in an emergent level but I will have her contact her corrugator operator later today to obtain further instructions and management. The remainder of her lab work and EKG do not show any acute, emergent medical issues Counseled pt/family regarding: lab results, diagnosis, need for follow-up Medical Desision Making - Independent Historian Additional History obtained from: Family - Diagnostic Testing Diagnostic test were ordered, analyzed, and reviewed by me: Yes - Risk of complications Low Risk: Low risk of morbidity from additional dx testing or treatment - Departure Departure Disposition: Home Clinical Impression: Dizziness, Diarrhea, Subclinical hyperthyroidism Condition: Stable Critical Care Time: No Referrals: SHADI COSTA DO [Primary Care Provider] - Follow up/PCP as directed Additional Instructions: Drink plenty of clear liquids. Take all your medications as prescribed. Call your corrugator operator today to obtain a follow-up appointment and instructions on your thyroid issues/medications. Call your primary care provider today, to obtain instructions on treating your diarrhea.
[2024-03-05] MEDS ORDERED: Sodium Chloride 0.9% 500 ML 500 ML IV ONE (10:01)
[2024-03-05] MEDS: Sodium Chloride 0.9% 500 ML 500 ML IV ONE (10:02)
[2024-03-05 10:10] LABS: Absolute Neutrophil Ct (ANC) 3.42 x10^3/uL (1.56-6.13); BASOPHIL % 0.7 % (0.1-1.2); Basophil (Absolute #) 0.04 x10^3/uL (0.01-0.08); Eosinophil (Absolute #) 0.18 x10^3/uL (0.04-0.36); Hematocrit 40.6 % (34.1-44.9); Hemoglobin 13.1 g/dL (11.2-15.7); IMMATURE GRAN # 0.02 x10^3u/L (0.001-0.031); IMMATURE GRAN % 0.3 % (0.001-0.429); Lymphocyte (Absolute #) 1.74 x10^3/uL (1.18-3.74); Lymphocytes % 29.2 % (19.3-51.7); Mean Corpuscular Hemoglobin 28.7 pg (25.6-32.2); Mean Corpuscular Hgb Concent. 32.3 g/dL (32.2-35.5); Mean Platelet Volume 10.2 fL (9.4-12.3); Monocyte (Absolute #) 0.55 x10^3/uL (0.24-0.86); Monocytes % 9.2 % (4.7-12.5); Neutrophil % 57.6 % (34.0-71.1); Platelet Count 207 x10^3/uL (182-369); Red Blood Count 4.56 x10^6/uL (3.93-5.22); Red Cell Distribution Width 13.6 % (11.7-14.4)
[2024-03-05 10:21] LABS: Appearance Clear (Clear); Bacteria None Seen /HPF (None Seen); Bilirubin Negative (Negative); Blood Negative (Negative); Epithelial Cells None Seen /HPF (None Seen); Glucose, Urine Negative (Negative); Hyaline Casts NONE SEEN /LPF (0-2); Ketones Negative (Negative); Leukocyte Esterase Negative (Negative); Nitrite Negative (Negative); Ph 5.5 (4.6-8.0); Protein,Urine Dip Negative (Negative); RBC 0-2 /HPF (0-5); Specific Gravity <=1.005 (1.005-1.030); Urobilinogen 0.2 mg/dL (0.2); WBC 0-2 /HPF (0-5)
[2024-03-05 10:56] VITALS: O2SAT 97
[2024-03-05 10:56] LABS: INFLUENZA A NEGATIVE (NEGATIVE); INFLUENZA B NEGATIVE (NEGATIVE); RESPIRATORY SYNCTIAL VIRUS NEGATIVE (NEGATIVE); SARS-CoV-2 Xpert Express NEGATIVE (NEGATIVE)
[2024-03-05 10:58] LABS: ALBUMIN 4.1 g/dL (3.5-5.0); ANION GAP 12.5 MEQ/L (5-15); BILIRUBIN,TOTAL 0.5 mg/dL (0.2-1.3); Calcium 9.5 mg/dL (8.4-10.2); Creatinine 1 0.77 mg/dL (0.52-1.04); EST GLOMERULAR FILTRATION RATE 83.5 ML/MIN; MAGNESIUM 2.2 mg/dL (1.6-2.3); Potassium 3.9 mmol/L (3.5-5.1); TSH, 3RD Generation 0.332 mIU/L (0.470-4.680); Total Protein 6.8 g/dL (6.3-8.2)
[2024-03-05 11:28] VITALS: BP 152/83; PULSE 57; RESP 15
== END 2024-03-05 11:34 | disposition home or self-care (01) ==
LOC: ED 09:12
DX: R42 Dizziness and giddiness (principal); R19.7 Diarrhea, unspecified; E05.80 Other thyrotoxicosis without thyrotoxic crisis or storm; Z79.899 Other long term (current) drug therapy; Z72.0 Tobacco use
CPT/HCPCS: 0241U; 36415; 80053; 81001; 83735; 84439; 84443; 84484; 85025; 93005; 94760; 99284